=== PATIENT | male | born 1960 | race African-American/Black ===

== ENCOUNTER 2024-01-21 00:29 | Emergency (ER) | payer BC ==
[~2024-01-21] VITALS: Ht 172.7 cm; Wt 69.0 kg
[2024-01-21 00:46] VITALS: TEMP 98.4; O2SAT 100
[2024-01-21] MEDS: MORPHINE SULFATE 4 MG/ML INJ (FOR IV/IM USE) IV STA (01:23)
[2024-01-21] MEDS: ONDANSETRON HCL 4MG/2ML INJ IV STA (01:23)
[2024-01-21] MEDS: LABETALOL 5MG/ML SYR 20 MG/4 ML SYRINGE IV ONE (01:23)
[2024-01-21] MEDS ORDERED: LEVETIRACETAM 1000MG PREMIX 100 ML IV ONE (01:30)
[2024-01-21 01:33] LABS: BASOPHILS % 0.4 % (0.0-2.0); EOSINOPHILS % 1.9 % (0.0-5.0); HEMATOCRIT. 43.4 % (42.0-52.0); HEMOGLOBIN. 14.8 g/dL (14.0-18.0); LYMPHOCYTES % 17.5 % (20.0-50.0); MEAN CORPUSCULAR HEMOGLOBIN 33.5 pg (28.0-32.0); MEAN CORPUSCULAR HGB CONC 34.1 g/dL (31.0-37.0); MEAN CORPUSCULAR VOLUME 98.4 fL (80.0-94.0); MEAN PLATELET VOLUME 8.9 fl (7.4-10.4); MONOCYTES % 6.3 % (2.0-8.0); NEUTROPHILS % 73.9 % (40.0-76.0); PLATELET 149 x1000/uL (130-400); RED BLOOD CELL COUNT 4.41 mill/uL (4.7-6.1); RED CELL DISTRIBUTION WIDTH 13.5 % (11.6-14.6); WHITE BLOOD COUNT 11.7 x1000/uL (4.5-11.0)
[2024-01-21] MEDS: NICARDIPINE 40 MG/200 ML PREMIX 200 ML IV PRN (01:36)
[2024-01-21 01:38] LABS: CHLORIDE 106 mEq/L (98-107); POTASSIUM 4.9 mEq/L (3.5-5.1); SODIUM 139 mEq/L (136-145)
[2024-01-21] MEDS: DEXAMETHASONE 10 MG/ML VIAL IV ONE (01:38)
[2024-01-21 01:39] LABS: CARBON DIOXIDE 27 mEq/L (21-32)
[2024-01-21 01:40] LABS: CALCIUM 9.6 mg/dL (8.7-10.4)
[2024-01-21 01:44] LABS: CREATININE 1.1 mg/dL (0.6-1.3); GLUCOSE 90 mg/dL (70-105)
[2024-01-21 01:45] LABS: UREA NITROGEN BLOOD 11 mg/dL (9-23)
[2024-01-21] MEDS: LEVETIRACETAM 1000MG PREMIX 100 ML IV NR (01:46)
[2024-01-21] MEDS: MANNITOL 20% 250 ML IV NR (01:49)
[2024-01-21] MEDS: NICARDIPINE 100 MG in SODIUM CHLORIDE 0.9% 60 ML IV ONE (01:50)
[2024-01-21] MEDS: DEXAMETHASONE 10 MG/ML VIAL IV NR (01:53)
[2024-01-21] MEDS: MANNITOL 20% 250 ML IV ONE (01:53)
[2024-01-21 02:10] VITALS: BP 153/87; PULSE 63; RESP 14
[2024-01-21] MEDS: MORPHINE SULFATE 4 MG/ML INJ (FOR IV/IM USE) IV ONE (02:11)
[2024-01-21] MEDS ORDERED: ONDANSETRON HCL 4MG/2ML INJ IV ONE (02:15)
== END 2024-01-21 02:27 | disposition short-term general hospital (02) ==
LOC: ER 00:29
DX: I60.9 Nontraumatic subarachnoid hemorrhage, unspecified (principal); I16.0 Hypertensive urgency; I10 Essential (primary) hypertension
CPT/HCPCS: 80048; 85025; 36415; 71045; 70450; 93005; 96365; 96375; 96376; 99291; Z7610 ×4; J1953; J1100; J3490; J2405; J2270; J7050

== ENCOUNTER 2024-03-11 22:40 | Emergency (ER) | payer BC, MEDICAID ==
[~2024-03-11] VITALS: Ht 182.9 cm; Wt 68.0 kg
[2024-03-11 22:56] VITALS: O2SAT 100
[2024-03-12 00:47] LABS: BASOPHILS % 0.2 % (0.0-2.0); EOSINOPHILS % 1.1 % (0.0-5.0); HEMATOCRIT. 45.2 % (42.0-52.0); HEMOGLOBIN. 15.1 g/dL (14.0-18.0); LYMPHOCYTES % 10.4 % (20.0-50.0); MEAN CORPUSCULAR HEMOGLOBIN 32.3 pg (28.0-32.0); MEAN CORPUSCULAR HGB CONC 33.3 g/dL (31.0-37.0); MEAN CORPUSCULAR VOLUME 96.9 fL (80.0-94.0); MEAN PLATELET VOLUME 8.4 fl (7.4-10.4); MONOCYTES % 6.3 % (2.0-8.0); PLATELET 205 x1000/uL (130-400); RED BLOOD CELL COUNT 4.67 mill/uL (4.7-6.1); RED CELL DISTRIBUTION WIDTH 13.2 % (11.6-14.6); WHITE BLOOD COUNT 13.5 x1000/uL (4.5-11.0)
[2024-03-12 00:51] LABS: DIFFERENTIAL COMMENT 1
[2024-03-12 01:00] LABS: CHLORIDE 107 mEq/L (98-107); POTASSIUM 3.7 mEq/L (3.5-5.1); SODIUM 140 mEq/L (136-145)
[2024-03-12 01:01] LABS: CARBON DIOXIDE 25 mEq/L (21-32)
[2024-03-12 01:02] LABS: CALCIUM 9.8 mg/dL (8.7-10.4)
[2024-03-12 01:06] LABS: CREATININE 0.9 mg/dL (0.6-1.3); GLUCOSE 93 mg/dL (70-105)
[2024-03-12 01:07] LABS: UREA NITROGEN BLOOD 13 mg/dL (9-23)
[2024-03-12 01:08] LABS: ALANINE AMINOTRANSFERASE 58 IU/L (10-49); ASPARTATE AMINOTRANSFERASE 27 IU/L (<34)
[2024-03-12 01:09] LABS: BILIRUBIN DIRECT 0.2 mg/dL (<=3.0); BILIRUBIN TOTAL 0.5 mg/dL (0.1-1.0); PROTEIN TOTAL 7.6 g/dL (6.0-8.3)
[2024-03-12 03:28] VITALS: TEMP 98.2
[2024-03-12] MEDS: MAGNESIUM/ALUMINUM HYDROXIDE/SIMETHICONE 30ML UDC PO ONE (04:18)
[2024-03-12] MEDS: PANTOPRAZOLE 40MG DR TABLET PO ONE (04:18)
[2024-03-12] MEDS: HYDRALAZINE HCL 10MG TABLET PO ONE (04:19)
[2024-03-12 05:28] VITALS: BP 147/87; PULSE 64; RESP 13
[2024-03-12] MEDS ORDERED: ACET-2708 MT (05:50)
[2024-03-12] MEDS ORDERED: ONDA4TAB50 MT (05:50)
== END 2024-03-12 06:01 | disposition home or self-care (01) ==
LOC: ER 22:40
DX: R10.11 Right upper quadrant pain (principal); R74.01 Elevation of levels of liver transaminase levels; I10 Essential (primary) hypertension
CPT/HCPCS: 36415; 71045; 76705; 80048; 80076; 85025; 93005; 99284